=== PATIENT | female | born 1980 | race Caucasian/White ===

== ENCOUNTER 2018-11-28 16:21 | Observation (INO) ==
[2018-11-28] MEDS ORDERED: Ketorolac 30 MG/ML VIAL IVP ONE (16:48)
[2018-11-28] MEDS ORDERED: Vancomycin 1,000 MG in D5% in Water 250 ML IVPB ONE (16:48)
[2018-11-28] MEDS ORDERED: Clindamycin 600 MG/50 ML 600 MG/50 ML IV.SOLN IVPB ONE (16:48)
[2018-11-28] MEDS ORDERED: Ondansetron 4 MG/2 ML VIAL IVP ONE (16:48)
--- NOTE | 2018-11-28 17:03 | Emergency Department Note ---
Disposition Clinical Impression: Abscess Disposition: Admitted As Inpatient Condition: Fair Time of Disposition: 17:39 Wound/Laceration HPI - General Chief Complaint: ED Wound/Laceration Stated Complaint: abcess to right arm Time Seen by Provider: 11/28/18 16:30 Source: patient Mode of arrival: ambulatory Limitations: no limitations Nursing Notes Reviewed: Yes Vital Signs Reviewed: Yes - History of Present Illness HPI Narrative: 29-year-old female who states she does not have a history of drug abuse but when reviewing of old records it does show that she has had a history of drug abuse who presents to the emergency room who has multiple abscesses on her right arm within the antecubital region on the posterior aspect near one of the veins the arm is red hot swollen she says is gotten worse over the past 5 days worsening here in the past 3 days she denies known history of MRSA she said they blister up and the may have pus underneath the lesions she said the majority of the s welling is in the elbow region with decreased range of motion but she denies numbness tingling or loss sensation she denies any biceps pain all pain is localizing in the elbow and in the forearm over the extensor flexor muscle bellies she denies any involvement of the left upper extremity is all on the right upper extremity she denies any alteration of her mentation she is a [id number] individual all systems have been reviewed and are otherwise negative Onset (ago): day(s) (5) Extremity Location: Right: elbow, forearm Place: home Patient Tetanus UTD: No Mechanism: other (suspect ) Associated symptoms: Reports: suspect foreign body present Pain Severity: moderate Pain Scale: 5 - Related Data Allergies Allergy/AdvReac Type Severity Reaction Status Date / Time acetaminophen [From Percocet] Allergy Hives Verified 11/28/18 19:17 oxycodone [From Percocet] Allergy Hives Verified 11/28/18 19:17 vancomycin Allergy Hives Verified 11/28/18 19:16 All systems ED: reviewed and negative except as stated. Review of Systems: As Per HPI Constitutional: Reports: weakness. Denies: fever, chills Eyes: Denies: eye pain, eye discharge ENT ED: Denies: ear pain, throat pain Cardiovascular: Denies: chest pain, palpitations Respiratory: Denies: cough, dyspnea Gastrointestinal: Denies: abdominal pain, nausea, vomiting Genitourinary: Denies: urgency, dysuria, frequency Musculoskeletal: Denies: back pain, neck pain Integumentary: Denies: rash, abrasion Neurological: Denies: headache, weakness Psychiatric: Denies: anxiety, depression Endocrine: Denies: fatigue, heat or cold intolerance Hematological/Lymphatic: Denies: easy bleeding Allergic/Immunologic: Denies: facial swelling, urticaria Past Medical History - Past Medical History Attestation: Yes The following information was validated with the patient. Source: patient, old records reviewed, nursing notes reviewed Medical history: Reports: CVA, other Psychiatric history: Reports: no psych history - Social History Smoking Status: Current every day smoker Smokeless Tobacco Status: No Alcohol use: Reports: none Drug use: Reports: none Physical Exam - General Limitations: no limitations General appearance: alert, in no apparent distress, anxious - Head Head exam: atraumatic, normocephalic, normal inspection - Eye Eye exam: Present: normal appearance, PERRL, EOMI - ENT ENT exam: normal exam, normal oropharynx, mucous membranes moist, TM's normal bilaterally, normal external ear exam - Neck Neck exam: Present: normal inspection, full ROM, trachea midline - Chest Chest inspection: Present: normal inspection, symmetric chest wall rise - Respiratory Respiratory exam: Present: normal lung sounds bilaterally - Cardiovascular Cardiovascular exam: Present: regular rate, normal rhythm, normal heart sounds - Abdominal Exam Abdominal exam: Present: soft, Non-Tender, normal bowel sounds. Absent: mass, pulsatile mass - Expanded Upper Extremity Exam Shoulder exam: Present: normal inspection, full ROM Arm exam: Present: normal inspection, full ROM, tenderness, swelling, other (abscess) Elbow exam: Present: normal inspection, full ROM, tenderness, swelling, other (abscess) Forearm/Wrist exam: Present: normal inspection, full ROM, other (abscess ) Hand exam: Present: normal inspection, full ROM Neuromotor exam: Normal: wrist extension Neurosensory exam: Normal: radial nerve, ulnar nerve Vascular exam: Normal: capillary refill, radial pulse - Expanded Lower Extremity Exam Hip/Pelvis exam: Present: normal inspection, full ROM Upper leg exam: Present: normal inspection, full ROM Knee exam: Present: normal inspection, full ROM Lower leg exam: Present: normal inspection, full ROM Ankle exam: Present: normal inspection, full ROM Foot/toe exam: Present: normal inspection, full ROM Neurovascular/Tendon exam: Present: normal capillary refill, normal fine/light touch. Absent: motor deficit, sensory deficit, tendon deficit Gait: observed and normal - Back Exam Back exam: Present: normal inspection, full ROM. Absent: muscle spasm - Neurological Exam Neurological exam: Present: alert, oriented X3, CN II-XII intact, normal gait - Psychiatric Psychiatric exam: Present: normal affect, normal mood - Skin Skin exam: Present: warm, dry, intact, normal color Course Course Narrative: Pt seen and examined and started on ab's and admitted for IV antibiotics Vital Signs Temperature 98.5 F 11/28/18 16:24 Pulse Rate 97 11/28/18 16:24 Respiratory Rate 18 11/28/18 16:24 Blood Pressure 151/86 11/28/18 16:24 O2 Sat by Pulse Oximetry 97 11/28/18 16:24 Temperature 98.5 F 11/28/18 16:24 Pulse Rate 97 11/28/18 16:24 Respiratory Rate 16 11/28/18 19:13 Blood Pressure 141/93 11/28/18 19:13 O2 Sat by Pulse Oximetry 97 11/28/18 16:24 Oxygen Delivery Oxygen Delivery Room Air Wound/Laceration - Differential Diagnosis Differential Diagnosis: Likely: abscess - Medical Records Medical records reviewed: Yes I reviewed the patient's medical records. - Lab Data Lab results reviewed: Yes I reviewed the patient's lab results. Result diagrams: 11/28/18 17:18 11/28/18 17:18 Lab Results 11/28/18 11/28/18 11/28/18 Range/Units 17:18 17:18 17:18 WBC 13.5 H (4.3-11.1) K/mcL RBC 4.34 (3.82-4.97) M/mcL Hgb 13.5 (11.5-15.4) g/dL Hct 38.8 (35.3-44.9) % MCV 89.4 (83.0-100.0) fL MCH 31.1 (28.0-33.3) pg MCHC 34.8 (31.6-35.5) g/dL RDW 12.0 (11.5-14.5) % Plt Count 205 (140-400) K/mcL MPV 9.2 L (9.4-12.4) fL Immature Gran % 0.4 (0-4) % Seg Neutrophils % 77.5 % Lymphocytes % 16.0 % Monocytes % 5.3 % Eosinophils % 0.5 % Basophils % 0.3 % Neutrophils # 10.5 H (1.6-8.9) K/mcL Lymphocytes # 2.2 (0.6-4.6) K/mcL Monocytes # 0.7 (0.0-1.3) K/mcL Eosinophils # 0.1 (0.0-0.6) K/mcL Basophils # 0.0 (0.0-0.2) K/mcL PT 13.9 H (9.4-12.1) Seconds INR 1.2 APTT 41.8 H (26.0-36.0) Seconds Sodium 135 L (136-145) mEq/L Potassium 3.9 (3.5-5.1) mEq/L Chloride 102 (98-107) mEq/L Carbon Dioxide 25 (23-29) mEq/L BUN 8 (6-20) mg/dL Creatinine 0.69 (0.60-1.20) mg/dL Est GFR ( Amer) > 60 (> 60) Est GFR (Non-Af Amer) > 60 (> 60) BUN/Creatinine Ratio 12 (6-26) Glucose 106 H (70-105) mg/dL Calculated Osmolality 279 L (280-300) Lactic Acid (0.5-2.2) mmol/L Calcium 9.4 (8.6-10.3) mg/dL Total Bilirubin 0.5 (0.3-1.0) mg/dL AST 12 L (13-39) Units/L ALT 7 (7-52) Units/L Alkaline Phosphatase 96 (34-104) Units/L Serum Total Protein 8.2 (6.4-8.9) g/dL Albumin 3.7 (3.5-5.7) g/dL Globulin 4.5 H (2.4-3.5) g/dL Albumin/Globulin Ratio 0.8 L (1.1-2.2) 11/28/18 Range/Units 17:18 WBC (4.3-11.1) K/mcL RBC (3.82-4.97) M/mcL Hgb (11.5-15.4) g/dL Hct (35.3-44.9) % MCV (83.0-100.0) fL MCH (28.0-33.3) pg MCHC (31.6-35.5) g/dL RDW (11.5-14.5) % Plt Count (140-400) K/mcL MPV (9.4-12.4) fL Immature Gran % (0-4) % Seg Neutrophils % % Lymphocytes % % Monocytes % % Eosinophils % % Basophils % % Neutrophils # (1.6-8.9) K/mcL Lymphocytes # (0.6-4.6) K/mcL Monocytes # (0.0-1.3) K/mcL Eosinophils # (0.0-0.6) K/mcL Basophils # (0.0-0.2) K/mcL PT (9.4-12.1) Seconds INR APTT (26.0-36.0) Seconds Sodium (136-145) mEq/L Potassium (3.5-5.1) mEq/L Chloride (98-107) mEq/L Carbon Dioxide (23-29) mEq/L BUN (6-20) mg/dL Creatinine (0.60-1.20) mg/dL Est GFR ( Amer) (> 60) Est GFR (Non-Af Amer) (> 60) BUN/Creatinine Ratio (6-26) Glucose (70-105) mg/dL Calculated Osmolality (280-300) Lactic Acid 0.6 (0.5-2.2) mmol/L Calcium (8.6-10.3) mg/dL Total Bilirubin (0.3-1.0) mg/dL AST (13-39) Units/L ALT (7-52) Units/L Alkaline Phosphatase (34-104) Units/L Serum Total Protein (6.4-8.9) g/dL Albumin (3.5-5.7) g/dL Globulin (2.4-3.5) g/dL Albumin/Globulin Ratio (1.1-2.2) Critical Care Time Critical Care Time: No
[2018-11-28 17:25] LABS: Basophils % 0.3 %; Eosinophils # 0.1 K/mcL (0.0-0.6); Eosinophils % 0.5 %; Hematocrit 38.8 % (35.3-44.9); Hemoglobin 13.5 g/dL (11.5-15.4); Immature Granulocytes % 0.4 % (0-4); Lymphocytes # 2.2 K/mcL (0.6-4.6); Mean Corpuscular HGB Conc 34.8 g/dL (31.6-35.5); Mean Corpuscular Hemoglobin 31.1 pg (28.0-33.3); Mean Corpuscular Volume 89.4 fL (83.0-100.0); Mean Platelet Volume 9.2 fL (9.4-12.4); Monocytes # 0.7 K/mcL (0.0-1.3); Monocytes % 5.3 %; Neutrophils # 10.5 K/mcL (1.6-8.9); Platelet Count 205 K/mcL (140-400); Red Blood Count 4.34 M/mcL (3.82-4.97); Segmented Neutrophils % 77.5 %
[2018-11-28 17:34] LABS: INR 1.2; Prothrombin Time 13.9 Seconds (9.4-12.1)
[2018-11-28 17:36] LABS: Activated Partial Thrombo Time 41.8 Seconds (26.0-36.0)
[2018-11-28 17:41] LABS: Alanine Aminotransferase 7 Units/L (7-52); Albumin 3.7 g/dL (3.5-5.7); Albumin/Globulin Ratio 0.8 (1.1-2.2); Alkaline Phosphatase 96 Units/L (34-104); Aspartate Amino Transferase 12 Units/L (13-39); BUN/Creatinine Ratio 12 (6-26); Bilirubin,Total 0.5 mg/dL (0.3-1.0); Blood Urea Nitrogen 8 mg/dL (6-20); Calcium 9.4 mg/dL (8.6-10.3); Carbon Dioxide 25 mEq/L (23-29); Chloride 102 mEq/L (98-107); Globulin 4.5 g/dL (2.4-3.5); Glucose 106 mg/dL (70-105); Osmolality,Calculated 279 (280-300); Potassium 3.9 mEq/L (3.5-5.1); Sodium 135 mEq/L (136-145); Total Protein 8.2 g/dL (6.4-8.9); eGFR For Non-African Americans > 60 (> 60)
[2018-11-28] MEDS: 0.9 % Sodium Chloride 1,000 ML IVC SCH ×6 (17:46→21:53)
[2018-11-28] MEDS ORDERED: 0.9 % Sodium Chloride 1,000 ML IVC SCH ×2 (19:27→20:30)
[2018-11-28] MEDS ORDERED: Naloxone 0.4 MG/ML INJ IVP PRN (19:27)
[2018-11-28] MEDS ORDERED: Ondansetron 4 MG/2 ML VIAL IVP PRN (19:27)
[2018-11-28] MEDS ORDERED: SULFAMETHOXAZOLE IVPB SCH (21:00)
[2018-11-28] MEDS ORDERED: TRIMETH IVPB SCH (21:00)
[2018-11-28] MEDS ORDERED: D5 IVPB SCH (21:00)
[2018-11-28] MEDS ORDERED: WATER IVPB SCH (21:00)
[2018-11-28] MEDS: Clindamycin 600 MG/50 ML 600 MG/50 ML IV.SOLN IVPB SCH (22:09)
[2018-11-29] MEDS ORDERED: SULFAMETHOXAZOLE IVPB ONE
[2018-11-29] MEDS ORDERED: TRIMETH IVPB ONE
[2018-11-29] MEDS ORDERED: D5 IVPB ONE
[2018-11-29] MEDS ORDERED: WATER IVPB ONE
[2018-11-29] MEDS: Clindamycin 600 MG/50 ML 600 MG/50 ML IV.SOLN IVPB SCH ×2 (05:11→13:40)
[2018-11-29 07:27] LABS: Basophils % 0.5 %; Eosinophils # 0.2 K/mcL (0.0-0.6); Eosinophils % 2.1 %; Hematocrit 38.5 % (35.3-44.9); Immature Granulocytes % 0.2 % (0-4); Lymphocytes # 1.7 K/mcL (0.6-4.6); Lymphocytes % 20.7 %; Mean Corpuscular HGB Conc 33.8 g/dL (31.6-35.5); Mean Corpuscular Hemoglobin 30.7 pg (28.0-33.3); Mean Platelet Volume 9.7 fL (9.4-12.4); Monocytes # 0.3 K/mcL (0.0-1.3); Monocytes % 3.8 %; Platelet Count 191 K/mcL (140-400); Red Blood Count 4.23 M/mcL (3.82-4.97); Red Cell Distribution Width 12.1 % (11.5-14.5); Segmented Neutrophils % 72.7 %
[2018-11-29 07:38] LABS: INR 1.2
[2018-11-29 07:40] LABS: Activated Partial Thrombo Time 40.6 Seconds (26.0-36.0)
[2018-11-29] MEDS ORDERED: WATER IVPB SCH ×2 (08:00→09:00)
[2018-11-29] MEDS ORDERED: SULFAMETHOXAZOLE IVPB SCH ×2 (08:00→09:00)
[2018-11-29] MEDS ORDERED: D5 IVPB SCH ×2 (08:00→09:00)
[2018-11-29] MEDS ORDERED: TRIMETH IVPB SCH ×2 (08:00→09:00)
[2018-11-29] MEDS ORDERED: Ibuprofen 600 MG TABLET PO PRN (09:43)
[2018-11-29 10:11] LABS: BUN/Creatinine Ratio 11 (6-26); Blood Urea Nitrogen 7 mg/dL (6-20); Calcium 9.1 mg/dL (8.6-10.3); Carbon Dioxide 23 mEq/L (23-29); Chloride 106 mEq/L (98-107); Glucose 100 mg/dL (70-105); Osmolality,Calculated 284 (280-300); Potassium 4.1 mEq/L (3.5-5.1); Sodium 138 mEq/L (136-145); eGFR For Non-African Americans > 60 (> 60)
--- NOTE | 2018-11-29 10:21 | Internal Med History&Physical ---
Date of Encounter: 11/29/18 Time of Encounter: 09:55 Assessment and Plan (1) Abscess Current visit: Yes Status: Acute She was started empirically on vancomycin and Septra through emergency room. Wound cultures have been ordered. CT of the arm will be done to further evaluate the extent of the abscesses. Internal Medicine - H&P: HPI Chief complaint: Right arm infection Admitted From: Emergency Dept Plans for Post Hospital Care: Home History of present illness: Ms. Swain is a 38 year old female came to emergency room stating she had chills with increased redness and pain in her right arm onset 2 days previously. She admitted to using IV heroin. She was evaluated in emergency room and was felt to have right arm abscesses. She was admitted to [facility] floor for ongoing care needs. Past Med Surg Social Fam HX - Past Medical History Medical history: CVA, other Additional medical history: "betch's" blood disorder Psychiatric history: no psych history - Past Surgical History Additional surgical history: RU chest port (now removed), ORIF right ankle - Social History Smoking Status: Current every day smoker Smokeless Tobacco Status: No Alcohol use: none Drug use: none Internal Medicine - H&P: Meds Allergy/AdvReac Type Severity Reaction Status Date / Time acetaminophen [From Percocet] Allergy Hives Verified 11/28/18 19:17 oxycodone [From Percocet] Allergy Hives Verified 11/28/18 19:17 vancomycin Allergy Hives Verified 11/28/18 19:16 All Systems PM: A 10-system review of systems was performed and is negative for pertinent findings except as documented above in the HPI. Review of systems: Gen.: She states her weight has been stable for several months Cardiovascular: She denies hypertension OR heart failure angina DVT or pulmonary embolus Respiratory: She smoked since age 17 up to 2 packs per day. She denies known chronic lung disease. GI: She has had cholecystectomy. She denies known disorders of her liver or exocrine pancreas. She denies history of hepatitis. : She denies hematuria dysuria kidney stones Neurologic: She states she has had 2 seizures in the past. She denies large distribution strokes or syncope. Endocrine: She denies diabetes thyroid disease or hyperlipidemia Hematology/oncology: She states she has a "blood disease" but is uncertain of the name. She denies known internal malignancies or anemia. Psychiatric: She denies anxiety depression or other mental health diagnoses [place] skeletal: She had remote right ankle fracture with ORIF surgical repair. She denies other bone joint or muscle disorders. - Constitutional Vitals: Temp Pulse Resp BP Pulse Ox 98.3 F 76 22 118/78 98 11/29/18 07:18 11/29/18 07:18 11/29/18 07:18 11/29/18 07:18 11/29/18 07:18 Exam: Gen.: She is a well-developed well-nourished female lying in bed who appears to be in mild to moderate discomfort. HEENT: Head is atraumatic and normocephalic. Eyes: EOMI. There is no scleral icterus. Mouth: Mucosa is moist. Neck: Supple and nontender. There is no thyromegaly or adenopathy noted. Heart: Regular without murmurs gallops or ectopics Lungs: No wheezes or crackles are heard. Abdomen: Soft and nontender. No masses or guarding are noted. Extremities: There is no cyanosis edema or clubbing noted. Dorsalis pedis and posterior tibial pulses are 1-2 over 2 bilaterally. Her right arm shows significant erythema with at least 2 areas of purulent drainage from subcutaneous abscesses in the antecubital total and proximal right forearm. There is a smaller nodular area with eschar in the distal right forearm also on the flexor surface. Her left arm is unremarkable. Neurologic: Mental status: She is talkative and a good historian. Cranial nerves: Smile is symmetric. Forehead wrinkles bilaterally. Tongue protrudes midline. EOMI. Motor: There is no pronator drift. Cerebellar: Finger to nose is intact bilaterally. Skin: Warm and dry. Internal Med - H&P Results - Labs CBC & Chem 7: 11/29/18 06:55 11/29/18 06:55 Labs: Short CBC 11/28/18 11/29/18 Range/Units 17:18 06:55 WBC 13.5 H 8.2 (4.3-11.1) K/mcL Hgb 13.5 13.0 (11.5-15.4) g/dL Hct 38.8 38.5 (35.3-44.9) % Plt Count 205 191 (140-400) K/mcL Neutrophils # 10.5 H 6.0 (1.6-8.9) K/mcL BMP 11/28/18 11/29/18 17:18 06:55 Sodium 135 L 138 Potassium 3.9 4.1 Chloride 102 106 Carbon Dioxide 25 23 BUN 8 7 Creatinine 0.69 0.63 Glucose 106 H 100 Calcium 9.4 9.1 Liver Function 11/28/18 Range/Units 17:18 Total Bilirubin 0.5 (0.3-1.0) mg/dL AST 12 L (13-39) Units/L ALT 7 (7-52) Units/L Alkaline Phosphatase 96 (34-104) Units/L Albumin 3.7 (3.5-5.7) g/dL
[2018-11-29] MEDS ORDERED: ALPRAZolam 0.5 MG TABLET PO ONE (12:25)
[2018-11-29 13:42] LABS: Hepatitis B Surface Antigen Nonreactive (Nonreactive)
[2018-11-29 14:12] LABS: Hepatitis B Core IgM Nonreactive (Nonreactive)
[2018-11-29 14:13] LABS: Hepatitis A Antibody IgM Nonreactive (Nonreactive)
[2018-11-29 14:32] VITALS: BP 129/79
--- NOTE | 2018-11-29 15:45 | Discharge Summary ---
Orders not resulted at time of discharge: Pending orders 11/28/18 17:21 Culture,Blood [BC] Stat 11/29/18 06:55 Hepatitis Prof.(Routine A,B,C) Routine 11/29/18 10:25 Culture,Wound [RM] Routine Date of Encounter: 11/29/18 Time of Encounter: 14:00 - Discharge Diagnosis (1) Abscess Priority: Primary Status: Acute Hospital course: Ms. Swain is a 38 year old female who came to emergency room stating she had chills with increased redness and pain in her right arm onset 2 days previously. She admitted to using IV heroin. She was evaluated in emergency room and was felt to have right arm abscesses. She was admitted to [facility] for ongoing care needs. Initial orders written by the emergency room physician. I saw her on November 29 and performed the history and physical. She was started on IV clindamycin and Septra. Wound cultures were obtained from cutaneous drainage sites in the right antecubital area. CT of the arm was done to further evaluate abscesses. CT showed multilocular subcutaneous forearm abscesses measuring up to 4.8 cm diameter. Additional abscesses were seen in the posterior medial elbow overlying the olecranon. I told her she needed to be seen by a surgeon for surgical drainage. She agreed to go to [facility] Arrangements for transfer were completed the afternoon of November 29. - Time Spent with Patient Total time spent providing and/or coordinating discharge services: - Discharge Medications Allergies/Adverse Reactions: Allergy/AdvReac Type Severity Reaction Status Date / Time acetaminophen [From Percocet] Allergy Hives Verified 11/28/18 19:17 oxycodone [From Percocet] Allergy Hives Verified 11/28/18 19:17 vancomycin Allergy Hives Verified 11/28/18 19:16 Date of admission: 11/28/18 18:58 Primary care physician: PCP NONE - Constitutional Vitals: Temp Pulse Resp BP Pulse Ox 98.1 F 73 16 129/79 99 11/29/18 14:30 11/29/18 14:30 11/29/18 14:30 11/29/18 14:30 11/29/18 14:30 - Patient Status Disposition: Transfer Other Condition: Fair - Discharge Instructions Follow Up With: NONE,PCP [Primary Care Provider] - 1 week
[2018-11-29 20:31] LABS: Hepatitis C Virus Antibody Reactive (Nonreactive)
== END 2018-11-29 16:25 | disposition other institution (70) ==
LOC: INPPIK 16:21 → EMEROOPIK 16:21 → INPPIK 19:17
PROVIDERS: ADMIT Internal Medicine; ATTEND Internal Medicine